=== PATIENT | male | born 1945 | race Caucasian/White ===

== ENCOUNTER 2018-09-02 06:18 | Day surgery (SDC) | payer OTHER ==
[~2018-09-02] VITALS: Ht 190.5 cm; Wt 83.9 kg
[~2018-09-02 06:18] MED LIST: BETA1TAB20 PO; CITA40TA6 PO; SODIUM CHLORIDE 0.9% 1000ML 1,000 ML IV ONE
[2018-09-02 07:56] VITALS: BP 128/73
[2018-09-02 09:00] VITALS: BP 95/45
[2018-09-02 09:05] VITALS: BP 120/69
[2018-09-02 09:10] VITALS: BP 125/73
[2018-09-02 09:15] VITALS: BP 115/68
[2018-09-02 09:20] VITALS: BP 121/67
== END 2018-09-02 09:35 | disposition home or self-care (01) ==
LOC: DAH 06:18 → ENDO 06:18
PROVIDERS: ATTEND Internal Medicine Gastroenterology
DX: R93.3 Abnormal findings on diagnostic imaging of other parts of digestive tract (principal); K57.30 Diverticulosis of large intestine without perforation or abscess without bleeding; I10 Essential (primary) hypertension; I25.10 Atherosclerotic heart disease of native coronary artery without angina pectoris; F41.9 Anxiety disorder, unspecified; F32.9 Major depressive disorder, single episode, unspecified; G47.00 Insomnia, unspecified; Z86.010 Personal history of colon polyps; Z90.49 Acquired absence of other specified parts of digestive tract; Z98.890 Other specified postprocedural states; Z79.899 Other long term (current) drug therapy; Z80.0 Family history of malignant neoplasm of digestive organs
CPT/HCPCS: 45378; 88305; A4606; J7030

== ENCOUNTER → 2023-03-27 | Outpatient (CLI) | payer OTHER ==
[~2023-03-27] MED LIST changes: +CITA-108 PO; -CITA40TA6 PO; +IOHEXOL 350 MG/ML 100ML INFUS..BTL IV ONE; +METOPROLOL TARTRATE 1 MG/ML 5ML VIAL IV ONE; -SODIUM CHLORIDE 0.9% 1000ML 1,000 ML IV ONE
== END | disposition home or self-care (01) ==
LOC: RAH 08:13
PROVIDERS: ATTEND Student in an Organized Health Care Education/Training Program
DX: I25.10 Atherosclerotic heart disease of native coronary artery without angina pectoris (principal); R07.9 Chest pain, unspecified; M47.815 Spondylosis without myelopathy or radiculopathy, thoracolumbar region
CPT/HCPCS: 75574; J3490; Q9967

== ENCOUNTER → 2023-03-29 | Outpatient (CLI) | payer OTHER ==
[~2023-03-29] MED LIST changes: -IOHEXOL 350 MG/ML 100ML INFUS..BTL IV ONE; -METOPROLOL TARTRATE 1 MG/ML 5ML VIAL IV ONE
== END | disposition home or self-care (01) ==
LOC: SHCH 07:34
PROVIDERS: ATTEND Student in an Organized Health Care Education/Training Program
DX: I08.8 Other rheumatic multiple valve diseases (principal); R07.9 Chest pain, unspecified; Z95.2 Presence of prosthetic heart valve
CPT/HCPCS: 93306

== ENCOUNTER 2024-08-30 06:27 | Day surgery (SDC) | payer OTHER ==
[2024-08-26 13:58] LABS: IMMATURE GRANULOCYTE ABSOLUTE 0.01 K/uL (0-1); NUCLEATED RED BLOOD CELLS 0.0 % (0.0-0.19); PLATELET COUNT (AUTO) 171 K/uL (130-400); RED BLOOD CELL COUNT(AUTO) 3.88 MIL/uL (4.50-6.20); RED CELL DISTRIBUTION WIDTH 11.8 % (11.0-15.5); WHITE BLOOD COUNT (AUTO) 4.6 K/uL (4.8-10.8)
[2024-08-26 13:59] VITALS: BP 110/65; PULSE 68; RESP 17; TEMP 98.8
[2024-08-26 14:08] LABS: CREATININE 0.8 mg/dL (0.5-1.3); GLOMERULAR FILTR. RATE CALC 91.0 mL/min (>90); GLUCOSE,RANDOM 96.0 mg/dL (70-105); SODIUM SERUM 141.0 mmol/L (136-145); UREA NITROGEN, BLOOD 17.0 mg/dL (7-18)
[2024-08-26 14:09] LABS: INR 0.98 (0.85-1.15)
[~2024-08-30] VITALS: Ht 182.9 cm; Wt 80.3 kg
[2024-08-30] VITALS (16 sets, daily range): BP systolic 112–133; BP diastolic 62–79; PULSE 48–61; RESP 12–16; TEMP 97.4–97.8
[~2024-08-30 06:27] MED LIST changes: -BETA1TAB20 PO; -CITA-108 PO; +VIT1CAPS5 PO
[2024-08-30] MEDS ORDERED: TRAZ-185 PO (07:11)
[2024-08-30] MEDS: LACTATED RINGERS 1000ML 1,000 ML IV ONE (07:12)
[2024-08-30] MEDS ORDERED: NEOSTIGMINE METHYLSULFATE 1MG/ML IV ONE (07:28)
[2024-08-30] MEDS ORDERED: LIDOCAINE PF 100MG/5ML (2%) SYRINGE 5ML ONE (07:28)
[2024-08-30] MEDS ORDERED: SUCCINYLCHOLINE CHLORIDE 20 MG/ML 10 ML VIAL ONE (07:28)
[2024-08-30] MEDS ORDERED: GLYCOPYRROLATE 0.2 MG/ML 5 ML VIAL ONE (07:28)
[2024-08-30] MEDS ORDERED: MIDAZOLAM HCL 1 MG/ML 2ML VIAL ONE (07:29)
--- NOTE | 2024-08-30 09:42 | OP ---
Operative Note: DATE OF PROCEDURE: 08/30/24 SURGEON: GLADYS CONRAD MD HIGH RISK CASE MANAGER: [] ANESTHESIA: [] General ANESTHESIOLOGIST/INSTRUCTOR PRODUCT INSPECTION: [] PREOPERATIVE DIAGNOSIS: [] Right inguinal hernia POSTOPERATIVE DIAGNOSIS: [] The same SYNOPSIS: [] PROCEDURE: [] Robotic right inguinal hernia repair ESTIMATED BLOOD LOSS: [] Minimal INDICATIONS: [] DESCRIPTION OF PROCEDURE: []With the patient prepped in usual fashion and a Hennessy catheter placed we inserted the Veress needle in the left upper quadrant abdomen insufflated. We have some difficulty placing is Hennessy catheter in the patient. No urine was obtained and I decided to left the catheter in and remove it at the end of the procedure Supraumbilical incision was created and a m illimeter da Sumeet trocar was inserted. Under direct vision I remove the needle and I placed 2 da Sumeet trochars 1 in each the side of the abdomen. Then we placed the patient in Trendelenburg and I docked the robot. I went to the console and observe a right inguinal hernia. This seems to be of the direct type. Using cautery dissection I was able to take some adhesions from the right lower quadrant. Using cautery I scored the peritoneum and I brought him down bluntly. I exposed the Bird's ligament and the indirect area I reduce a large hernia sac preserving the spermatic cords and visualizing the vas deferens and spermatic cords. The hernia was reduced without any problems. After observing the myopectineal line and the Bird's ligament I placed a 3 D MAX MId mid mesh on the right side. This was a medium one. I placed it over the Bird's ligament covering couple centimeters below and the indirect space. The sac with the lipoma was placed over the mesh. I then closed the peritoneum with a 2 oh V-Loc. No anchoring of the mesh was necessary. We did a closure continues and dropped the pressure to 8 cm. After this was done I remove the needle and I remove all the trochars under direct vision. The skin was closed with 4-0 Monocryl and Dermabond. We placed 20 cc GLADYS CONRAD MD Aug 30, 2024 09:42
--- NOTE | 2024-08-30 11:20 | NUR ---
pt having difficulty urinating, called Dr ni, recieved order to continue waiting unitl pt urinates, once able to urinate pt okay to discharge.
--- NOTE | 2024-08-30 12:00 | NUR ---
pt urinated 115mls. states feels better, continuing with discharge orders to home per Dr Zepeda.
== END 2024-08-30 12:00 | disposition home or self-care (01) ==
LOC: DAH 06:27
PROVIDERS: ATTEND Surgery
DX: K40.90 Unilateral inguinal hernia, without obstruction or gangrene, not specified as recurrent (principal); Z98.890 Other specified postprocedural states; Z79.01 Long term (current) use of anticoagulants; Z79.899 Other long term (current) drug therapy
CPT/HCPCS: 80048; 85025; 85610; 85730; 36415; 49650; 64486; A6260; A4663; J7030; A4344; C1758; A4215 ×2; J7120; J3010 ×2; J1100; J0330; J0665; J3490 ×4; J2003; J2250; J2704; J2405; J2710; J2795; J0690 ×2; A4930; C1781; A4213; A4222; A4221; A4216; A4450; S2900; A4223 ×2; A4600

== ENCOUNTER 2024-09-22 11:12 | Inpatient (IN) | payer MEDICARE, OTHER ==
[~2024-09-22] VITALS: Ht 182.9 cm; Wt 77.6 kg
[~2024-09-22 11:12] MED LIST changes: +TRAZ-185 PO
--- NOTE | 2024-09-22 11:49 | ERN ---
ED Note History of Present Illness Stated Complaint: URINARY PROBLEM Chief Complaint: Urinary Retention Time Seen by MD: 11:13 Dictation: PATIENT IS A 78-YEAR-OLD MALE COMING IN FROM THE [facility] WITH COMPLAINTS OF URINARY URGENCY AND FREQUENCY SINCE LAST YEAR. HE STATES HE HAD HERNIA SURGERY ON THE 7TH OF THIS MONTH, HAS HAD BEEN TROUBLING EVEN WORSE WITH THE URINATION AND COMPLETELY EMPTYING HIS BLADDER. HE IS CURRENTLY DISTENDED 3- 4 FINGERBREADTHS ABOVE SYMPHYSIS PUBIS STATES HE IS NOT EMPTY HIS BLADDER IN SEVERAL MONTHS. NO UROLOGIST HISTORY OF BPH WITH RETENTION Allergies: Coded Allergies: No Known Allergies (Unverified Allergy, Unknown, 09/01/18) Home Meds Reported Medications Trazodone HCl (Trazodone HCl) 50 Mg Tablet, 25 MG PO HS, TAB 08/30/24 Vit A/Vit C/Vit E/Zinc/Copper (Preservision Areds Softgel) [phone] Capsule, 1 CAP PO 2X/WEEK for 30 Days, #60 CAP 0 Refills 08/26/24 Past Medical History Past Medical History: No Pertinent History Surgical History: Other Surgical History Other: PROSTATES REMOVED RN Note Reviewed/Agreed w/PFSH: Yes Review of System Dictation CONSTITUTIONAL: NEGATIVE EXCEPT FOR HPI HEAD/FACE: NEGATIVE EXCEPT FOR HPI EENT: NEGATIVE EXCEPT FOR HPI RESPIRATORY: NEGATIVE EXCEPT FOR HPI GASTROINTESTINAL/ABDOMINAL: NEGATIVE EXCEPT FOR HPI GENITOURINARY: NEGATIVE EXCEPT FOR HPI URINARY URGENCY FREQUENCY WITH RETENTION MUSCULOSKELETAL: NEGATIVE EXCEPT FOR HPI INTEGUMENTARY: NEGATIVE EXCEPT FOR HPI NEUROLOGICAL/PSYCH: NEGATIVE EXCEPT FOR HPI HEMATOLOGIC/LYMPHATIC: NEGATIVE EXCEPT FOR HPI ALL SYSTEMS NEGATIVE, EXCEPT NOTED ABOVE. 13 POINT REVIEW OF SYSTEMS ASSESSED AND ALL NEGATIVE EXCEPT FOR ABOVE. Initial Vital Sign VS Vital Signs Date Time Temp Pulse Resp B/P (MAP) Pulse Ox O2 Delivery O2 Flow Rate FiO2 09/22/24 11:13 98.4 62 18 137/67 97 Room Air 09/22/24 11:21 0 21 Physical Exam Dictation VITAL SIGNS REVIEWED GENERAL APPEARANCE: ALERT, ORIENTED X 3, MODERATE ACUTE DISTRESS, WELL DEVELOPED, NOURISHED. HEAD AND FACE: NON-TRAUMATIC. EYES: PERRL, PINK CONJUNCTIVAS, EYELID NO TRAUMA, ANTERIOR CHAMBER WITH ARCUS SENILIS. EARS: PINNAS INTACT AND NO SIGNS OF TRAUMA OR ERYTHEMA EAR CANALS CLEAR AND NO DISCHARGE TM NO ERYTHEMA NOSE: NO DISCHARGE, NO BLEEDING. OROPHARYNX: MOUTH NORMAL, TONGUE PINK, PHARYNX CLEAR,NO ERYTHEMA, TONSILS NO EXUDATES, NO ABSCESSES NOTED, MUCOUS MEMBRANE MOIST NECK: SUPPLE, NON-TENDER, NO THYROMEGALY, NO MASSES, NO JVD, NO BRUITS BREAST:DEFERRED CHEST:NO TENDERNESS, NO CREPITUS, NO PARADOXICAL MOVEMENT, NO RETRACTIONS LUNGS:CLEAR, WELL-VENTILATED, SYMMETRIC, NO RALES, NO WHEEZING, NO RHONCHI, NO STRIDOR, GOOD BREATH SOUNDS BILATERALLY HEART: REGULAR RATE, REGULAR RHYTHM, NO MURMUR, NO GALLOPS VASCULAR: NO PERIPHERAL EDEMA, ABDOMEN: SOFT, POSITIVE BOWEL SOUNDS, NONDISTENDED, NO GUARDING, NONTENDER, NO REBOUND, NO MASSES NO HEPATOMEGALY, NO SPLENOMEGALY, NO BEVERLY'S SIGN, NO HERNIAS. RECTAL: DEFERRED GENITAL: PATIENT DISTENDED 3-4 FINGERBREADTHS ABOVE SYMPHYSIS PUBIS. NEUROLOGICAL: NORMAL SPEECH, MOTOR FUNCTION INTACT, SENSORY FUNCTION INTACT MUSCULOSKELETAL: NECK NONTENDER, FULL RANGE OF MOTION, BACK NONTENDER, FULL RANGE OF MOTION, EXTREMITIES: NONTENDER, FULL RANGE OF MOTION SKIN: COLOR PINK, DRY, NO TURGOR, NO RASH, NO LACERATIONS, NO ABRASIONS, NO CONTUSIONS. LYMPHATIC: DEFERRED Results (Laboratory/Radiology) Laboratory/Radiology Laboratory Tests Test 09/22/24 13:08 09/22/24 13:10 09/22/24 14:06 09/22/24 16:41 White Blood Count 4.1 K/uL (4.8-10.8) L 4.1 K/uL (4.8-10.8) L Red Blood Count 2.55 MIL/uL (4.50-6.20) L 3.53 MIL/uL (4.50-6.20) #L Hemoglobin 12.8 g/dL (14.0-18.0) L 12.2 g/dL (14.0-18.0) L 11.8 g/dL (14.0-18.0) L Hematocrit 27.7 % (42-54) L 35.8 % (42-54) #L 33.0 % (42-54) L Mean Corpuscular Volume 108.6 fL (79-99) H 101.4 fL (79-99) H Mean Corpuscular Hemoglobin 50.2 pg (27.0-33.0) H 34.6 pg (27.0-33.0) H Mean Corpuscular Hemoglobin Concent 46.2 g/dL (32.0-36.0) H 34.1 g/dL (32.0-36.0) Red Cell Distribution Width 13.8 % (11.0-15.5) 11.9 % (11.0-15.5) Platelet Count 151 K/uL (130-400) 143 K/uL (130-400) Mean Platelet Volume 10.6 fL (7.5-10.5) H 9.8 fL (7.5-10.5) Immature Granulocyte % (Auto) 0.0 % (0-1) 0.2 % (0-1) Neutrophils (%) (Auto) 63.0 % (40.0-77.0) 66.9 % (40.0-77.0) Lymphocytes (%) (Auto) 23.5 % (21.0-51.0) 21.3 % (21.0-51.0) Monocytes (%) (Auto) 9.8 % (3.0-13.0) 8.0 % (3.0-13.0) Eosinophils (%) (Auto) 2.2 % (0.0-8.0) 2.4 % (0.0-8.0) Basophils (%) (Auto) 1.5 % (0.0-5.0) 1.2 % (0.0-5.0) Neutrophils # (Auto) 2.6 K/uL (1.8-7.7) 2.8 K/uL (1.8-7.7) Lymphocytes # (Auto) 1.0 K/uL (1.0-4.8) 0.9 K/uL (1.0-4.8) L Monocytes # (Auto) 0.4 K/uL (0.1-1.0) 0.3 K/uL (0.1-1.0) Eosinophils # (Auto) 0.09 K/uL (0.00-0.70) 0.10 K/uL (0.00-0.70) Basophils # (Auto) 0.06 K/uL (0.00-0.20) 0.05 K/uL (0.00-0.20) Absolute Immature Granulocyte (auto 0.00 K/uL (0-1) 0.01 K/uL (0-1) Nucleated Red Blood Cells 0.0 % (0.0-0.19) 0.0 % (0.0-0.19) Red Blood Cell Morphology See comments Prothrombin Time 10.3 SEC (9.6-11.6) Prothromb Time International Ratio 0.97 (0.85-1.15) Activated Partial Thromboplast Time 26.8 SEC (26.3-35.5) Sodium Level 141 mmol/L (136-145) Potassium Level 3.8 mmol/L (3.5-5.1) Chloride Level 103 mmol/L (101-111) Carbon Dioxide Level 30 mmol/L (21-32) Blood Urea Nitrogen 16 mg/dL (7-18) Creatinine 0.7 mg/dL (0.5-1.3) Glomerular Filtration Rate Calc 94 mL/min (>90) Random Glucose 100 mg/dL (70-105) Total Calcium 8.6 mg/dL (8.5-10.1) Urine Color RED (YELLOW) H Urine Appearance TURBID (CLEAR) H Urine pH 7.0 (5.0-8.0) Urine Specific [place] 1.025 (1.001-1.031) Urine Protein >=300 mg/dL (NEGATIVE) H Urine Glucose (UA) NEGATIVE mg/dL (NEGATIVE) Urine Ketones NEGATIVE mg/dL (NEGATIVE) Urine Occult Blood LARGE (NEGATIVE) H Urine Nitrate NEGATIVE (NEGATIVE) Urine Bilirubin NEGATIVE mg/dL (NEGATIVE) Urine Urobilinogen 0.2 mg/dL (0.2-1.0) Urine Leukocyte Esterase NEGATIVE [place]in/uL Urine RBC TNTC /HPF (0-1) H Urine WBC None Seen /HPF (0-1) Urine Squamous Epithelial Cells None Seen /HPF (0-2) Urine Bacteria None Seen /HPF (None Seen) Total Bilirubin 1.0 mg/dL (0.2-1.0) Direct Bilirubin 0.2 mg/dL (0.0-0.3) Aspartate Amino Transf (AST/SGOT) 23 U/L (10-37) Alanine Aminotransferase (ALT/SGPT) 21 U/L (12-78) Alkaline Phosphatase 48 U/L (50-136) L Total Protein 6.6 g/dL (6.0-8.3) Albumin 3.4 g/dL (3.5-5.0) L Test 09/22/24 22:19 09/23/24 04:07 Hemoglobin 11.4 g/dL (14.0-18.0) L 11.2 g/dL (14.0-18.0) L Hematocrit 29.7 % (42-54) L 30.2 % (42-54) L Labs Reviewed?: Yes ED Course ED Course Orders Procedure Category Date Status Time Nurse Driven Shaver YFN 09/22/24 In Process Removal Pro 12:31 Bladder Scan CPOE 09/22/24 Transmitted 12:33 Saline Lock Iv CPOE 09/22/24 Transmitted 12:43 Morphine 4mg Syg PHA 09/22/24 Complete (Morphine 4mg Syg) 13:00 Ondansetron 4mg Inj PHA 09/22/24 Complete (Zofran 4mg Inj) 13:00 Bladder Scan CPOE 09/22/24 Transmitted 12:44 Cbc With Differential LAB 09/22/24 Complete 12:55 Urinalysis Profile LAB 09/22/24 Complete 12:55 Basic Metabolic Panel LAB 09/22/24 Complete 12:55 Pt And Ptt LAB 09/22/24 Complete 12:55 Edm Admit Bridge Order ADM 09/22/24 Transmitted 13:04 Urology Consult CONPHYSVC 09/22/24 Transmitted 13:04 Apply Scds CPOE 09/22/24 Transmitted 13:04 Tamsulosin Hcl PHA 09/22/24 Complete (Flomax) 13:30 Tamsulosin Hcl PHA 09/23/24 In Process (Flomax) 09:00 Acetaminophen 325 Tab PHA 09/22/24 In Process (Tylenol 325mg Tab 13:30 Ondansetron 4mg Inj PHA 09/22/24 In Process (Zofran 4mg Inj) 13:30 Hydralazine 20mg Inj PHA 09/22/24 In Process (Apresoline 20mg In 13:30 Lactulose 20 Gm/30 Ml PHA 09/22/24 In Process Udcup (Constulose 13:30 Magnesium 2gm Premix PHA 09/22/24 In Process 50ml (Magnesium 2gm 13:30 Initiate Npo YFN 09/22/24 In Process Hypokalemia Yong 13:04 Potassium Chloride PHA 09/22/24 In Process 20meq/100ml ([place] 13:30 Notify Physician If CPOE 09/22/24 Transmitted There Is 13:04 Notify Md On The Next CPOE 09/22/24 Transmitted 13:04 Notify Md On The CPOE 09/22/24 Transmitted Next(Cont.) 13:04 Initiate Po YNF 09/22/24 In Process Hypokalemia Protoc 13:04 Potassium Chloride PHA 09/22/24 Complete 20meq/100ml ([place] 13:30 Potassium Chl 10% PHA 09/22/24 In Process Elixir 20meq (Kcl 10% 13:30 Potassium Chloride PHA 09/22/24 In Process 20meq Er (K-Dur/Klor- 13:30 Notify Physician If CPOE 09/22/24 Transmitted There Is 13:04 Notify Md On The Next CPOE 09/22/24 Transmitted 13:04 Notify Md On The CPOE 09/22/24 Transmitted Next(Cont.) 13:04 Trazodone Hcl PHA 09/22/24 In Process (Desyrel/Oleptro) 21:00 Home Medication (Home PHA 09/22/24 In Process Medication) 14:00 Admit Orders ADM 09/22/24 Transmitted 13:51 Morphine 2mg Syg PHA 09/22/24 In Process (Morphine 2mg Syg) 14:00 Cbc With Differential LAB 09/22/24 Complete 13:51 Hemoglobin And LAB 09/22/24 Complete Hematocrit 16:00 Hemoglobin And LAB 09/22/24 Complete Hematocrit 22:00 Hemoglobin And LAB 09/23/24 Complete Hematocrit 04:00 Hemoglobin And LAB 09/23/24 Logged Hematocrit 10:00 Hemoglobin And LAB 09/23/24 Logged Hematocrit 16:00 Hemoglobin And LAB 09/23/24 Logged Hematocrit 22:00 Etoh Alcohol YFN 09/22/24 In Process Withdrawal Ords 14:07 Chlordiazepoxide Hcl PHA 09/22/24 In Process 25 Mg Cap (Librium 14:30 Pharmacy PHA 09/22/24 In Process Communication 14:30 Use The Ci[place]-Ar CPOE 09/22/24 Transmitted Assmt. Tool 14:07 Assess The Need For CPOE 09/22/24 Transmitted Seizure & 14:07 Vs Per Unit Routine & CPOE 09/22/24 Transmitted With 14:07 Document Etoh CPOE 09/22/24 Transmitted Withdrawal Score 14:07 Urinalysis Profile LAB 09/22/24 Logged 14:10 Diazepam 5 Mg/Ml 2 Ml PHA 09/22/24 In Process Syg (Valium 5 Mg/M 14:30 Gastroenterology CONPHYSVC 09/22/24 Transmitted Consult 14:11 Type And Screen BBK 09/23/24 Complete 04:00 *Nursing CPOE 09/22/24 Transmitted Communication: 14:15 Ct Abdomen/Pelvis W/O CT 09/22/24 Resulted Contrast 16:26 Nothing By Mouth DIET 09/22/24 Complete Dinner Ceftriaxone 1g Vial PHA 09/22/24 In Process (Rocephine 1g Inj) 18:00 Hepatic Function Panel LAB 09/22/24 Complete 17:46 Hydrocortisone 1% PHA 09/22/24 In Process Cream (Cortrisone 1% C 22:30 Schedule Or Consented CPOE 09/23/24 Transmitted Surgery 06:30 Nothing By Mouth DIET 09/23/24 Transmitted Breakfast Npo Midnight Before CPOE 09/22/24 Transmitted Procedure 22:17 Midazolam Hcl (Versed) PHA 09/23/24 Complete 06:13 Propofol 20ml Vial PHA 09/23/24 Complete (Diprivan 20ml Vial) 06:13 Fentanyl Citrate Pf PHA 09/23/24 Complete 0.05 Mg/Ml (Fentanyl 06:13 Ceftriaxone 1g Vial PHA 09/23/24 Complete (Rocephine 1g Inj) 06:20 Rocuronium [place] PHA 09/23/24 Complete (Zemuron) 06:24 Urethrocystography RAD 09/23/24 Logged Retrograde Cbc With Differential LAB 09/23/24 In Process 06:52 Comprehensive LAB 09/23/24 In Process Metabolic Panel 06:52 Magnesium LAB 09/23/24 In Process 06:52 Current Medications Medications (Trade) Dose Ordered Sig/Amber Route PRN Reason Start Time Stop Time Status Last Admin Dose Admin Morphine Sulfate (morPHINE 4MG SYG) 4 mg ONCE ONCE IVP 09/22/24 13:00 09/22/24 13:01 DC 09/22/24 13:16 Ondansetron HCl (zoFRAN 4MG INJ) 4 mg ONCE ONCE IVP 09/22/24 13:00 09/22/24 13:01 DC 09/22/24 13:16 Vital Signs Date Time Temp Pulse Resp B/P (MAP) Pulse Ox O2 Delivery O2 Flow Rate FiO2 09/23/24 04:00 98.6 61 20 108/69 97 Room Air 09/23/24 00:00 98.2 60 18 126/73 97 Room Air 09/22/24 20:00 98.4 84 20 132/79 98 Room Air 09/22/24 17:50 97 Room Air* 0 21 09/22/24 17:50 98.1 71 18 135/84 97 Room Air 21 09/22/24 17:30 98.1 75 14 137/84 99 Room Air 09/22/24 11:21 98.4 62 18 137/67 97 Room Air* 0 21 09/22/24 11:13 98.4 62 18 137/67 97 Room Air 1258/SPOKE WITH , WE WILL DRAW BASIC LABS TO INCLUDE COAG PANEL, WE WILL GIVE PATIENT MEDICATION FOR PAIN AND WE WILL HAVE PATIENT ADMITTED FOR CONSULTATION TO UROLOGY.1305/ 1305 SPOKE WITH THE [facility] RN FOR [facility]. REVIEWED ATTEMPTS TO OBTAIN CATHETERIZATION WITHOUT SUCCESS SHE IS AWARE I AM DRAWING LABS WE WILL GIVE PATIENT IS SEPTIC FOR PAIN AND SHE NEEDS TO CONSULT UROLOGY. Medical Decision Making MDM MDM: DIFFERENTIAL DIAGNOSIS: URINARY RETENTION/PROSTATE ENLARGEMENT/URINARY TRACT INFECTION/ELECTROLYTE IMBALANCE/DEHYDRATION RATIONALE: TESTS CONSIDERED AND ORDERED SECONDARY TO SHARED DECISION MAKING INCLUDE: LABS, PREVIOUS OUTSIDE RECORDS REVIEWED: OLD ER VISITS. RISK OF COMPLICATION AND/OR MORBIDITY OR MORTALITY OF PATIENT MANAGEMENT: NONE MEDICATIONS-PER MEDICATION RECONCILIATION NEED FOR HOSPITALIZATION: PATIENT DOES MEET CRITERIA FOR HOSPITALIZATION. UROLOGY CONSULTATION NEED FOR EMERGENCY MAJOR/MINOR SURGERY: NO THERE ARE NO SOCIAL CONCERNS WITH THIS PATIENT. PRESCRIPTION DRUG MANAGEMENT PRESCRIPTIONS WILL INCLUDE SYMPTOMATIC CARE PATIENT'S PRIOR EXTERNAL MEDICAL RECORDS FROM OTHER ER VISITS WERE REVIEWED BY ME INDICATED. PRIOR TESTING AND RESULTS FROM PREVIOUS VISITS WERE REVIEWED. PRIOR TESTS WERE TAKEN INTO ACCOUNT WITH MEDICAL DECISION MAKING AND RESOURCE UTILIZATION, INDEPENDENT HISTORIAN/HISTORIANS WERE USED TO OBTAIN COMPLETE MEDICAL HISTORY. I INDEPENDENTLY INTERPRETED THE TEST THAT WERE PERFORMED, RESULTS WERE REVIEWED BY ME AND CONSIDERED FINDINGS ON RADIOLOGY IF ORDERED. MEDICAL MANAGEMENT AND EXAMINATION INTERPRETATION DISCUSSIONS WERE HAD BY ME WITH OTHER QUALIFIED HEALTHCARE PROFESSIONALS INDICATED FOR THE PATIENT'S CARE. Procedure Procedure Dictation: 1140/ATTEMPTED MULTIPLE X2 ASEPTICALLY PLACED A 16 GREEK STRAIGHT SHAVER CATHETERIZATION THEN 14 GREEK COUDE WITHOUT SUCCESS. WE WILL REFER PATIENT TO ANOTHER NURSE FOR RE-ATTEMPT. DX & DISP Disposition: Inpatient Decision to Admit Time: 12:58 Departure Impression: Primary Impression: Acute on chronic urinary retention Additional Impression: Urinary frequency Condition: Stable Referrals: ELOISA ORNELAS MD (PCP) Time of Disposition: 12:58 I have reviewed the case, and I agree with, Diagnosis and Plan NAYA PHILLIP NP Sep 22, 2024 11:49 MINDA OVIEDO DO Sep 23, 2024 07:01
--- NOTE | 2024-09-22 12:38 | NUR ---
BLADDER SCAN SHOWS 404 ML
--- NOTE | 2024-09-22 13:10 | HP ---
[facility] HISTORY AND PHYSICAL Date of Service: Sep 22, 2024 Time of Service: 13:09 HISTORY OF PRESENT ILLNESS: [ ] ADMISSION DATE 09/22/[address] [facility] [address] [address] ORNELAS This is a 78-year-old male that presents in ER with chief complaints of urinary urgency: onset: Reports this has been ongoing. Patient has underlying prostate cancer history 2002. Patient reports having hematuria which is ongoing per se. Patient denies flank pain, suprapubic pain,dizziness, or shortness for breath. ER workup bladder scan urine retention greater than 400 mL, multiple attempts insertion of Shaver catheter unsuccessful. ER physician called Dr. Brittany BOND. The patient was seen in ED 9 appears be comfortable. Denied chest pain or shortness for breath. REVIEW OF SYSTEMS A 12 point ROS was obtained all relevant positives were documented otherwise ROS negative PAST MEDICAL HISTORY: [ ] Hypertension no BP medication, hyperlipidemia PAST SURGICAL HISTORY: [ ] Heart surgery, prostate surgery PAST SOCIAL HISTORY: [ ] Denies smoking tobacco products drinks alcohol on a daily basis three cans of beer FAMILY HISTORY: [ ] . Noncontributory Coded Allergies: No Known Allergies (Unverified Allergy, Unknown, 09/01/18) PHYSICAL EXAM GENERAL APPEARANCE: The patient is awake, alert, and oriented, in no acute cardiopulmonary distress. NEUROLOGICAL: Cranial nerves II-XII grossly intact. Motor is 5/5 in bilateral upper and lower extremities proximal to distal. No sensory deficits. HEENT: Face is symmetric. Pupils are equal and reactive. Extraocular movements are intact. NECK: Supple. No JVD. No thyromegaly. No submental, submandibular, pre- /postauricular, occipital or supraclavicular lymphadenopathy. CHEST: Normal chest expansion. No Telemetry. LUNGS: Absence of any rales, rhonchi or any wheezing. CARDIOVASCULAR: Regular. S1 and S2 normal. No appreciable rubs, murmurs or gallops. ABDOMEN: Soft, nontender, and nondistended. There is no rebound, voluntary guarding, or rigidity. : Deferred. No Shaver. EXTREMITIES: Non-edematous and not cyanotic. No clubbing. Good capillary refill. SKIN: No skin breakdown. Vital Sign (Last 24 Hours) 09/22/24 11:21 Temp 98.4 Pulse 62 Resp 18 B/P (MAP) 137/67 Pulse Ox 97 O2 Delivery Room Air* O2 Flow Rate 0 FiO2 21 LABS: DIAGNOSTICS / RADIOLOGY: ASSESSMENT: Gross hematuria POA Urinary urgency, retention POA Rectal bleed secondary to external hemorrhoids POA ETOH DEPENDENCY: HISTORY:RECTAL PROLAPSE HISTORY OF PROSTATE CANCER 2002 PLAN: [ ] Admit: Medical-surgical floor condition: Guarded Status: Full code IVF: Hep-Lock Diet: NPO for now if no surgical intervention Heart Healthy diet Consultants urology and GI Procedure; MULTIPLE ATTEMPTS INSERTION SHAVER CATHETER unsuccessful: WAITING FOR UROLOGY Antibiotics: None Microbiology: UA pending We will monitor H&H trend H&H every 6 hours Type and screen ; transfuse to keep hemoglobin above 7.0 Labs cbc, cmp, mag+ Replace electrolytes as needed as per protocol to keep potassium above 4.0 magnesium 2.0. Home medications pending to be reviewed by RN nurse. PRN: MEDICATIONS Tylenol 650 mg po every 4 hrs for fever zofran 4 mg IV every 6 hrs for n/v Hydralazine 5 mg IV every 4 hrs systolic pressure > 160 bowel regiment: lactulose 20 gm PO BID PRN constipation Pain management: MORPHINE2 MG IV NEEDED FOR PAIN Supportive measures: DVT ppx, GI ppx all questions answered time spent: > 35 min Supervising MD: Dr. VANN c/d This document was generated in part using voice recognition software, occasional wrong word or sound alike substitutions may have occurred due to the inherent limitations of voice recognition software. Read the chart carefully and recognize using context, where the substitutions have occurred. Although every effort was made to edit the content, minister helper and typing errors may occur ADVANCED CARE PLANNING 1. Which of the following were discussed? Hospice Care - Yes / No Therapeutic options - Yes / No Advance Directives - Yes / No Other discussions - 2. Discussed with who? 3. Voluntary nature of this service was explained to the patient? Yes / No 4. Amount of time spent - 5. Reviewed by Physician? (if this service was performed by NPP) Yes / No ATTESTATION BY PHYSICIAN I have seen and examined the patient. I reviewed the documentation, medical decision making, and treatment plan as noted by the mid-level provider above. I agree with the findings and plan of care. YUE VANN MD, ELIZABETH NP Sep 22, 2024 13:09
[2024-09-22] MEDS ORDERED: LACTULOSE 20 GM/30 ML UDCUP PO PRN (13:30)
[2024-09-22] MEDS ORDERED: PoTASSium chl 10% ELIXIR 20MEQ 20 MEQ/15 ML UDCUP PO PRN (13:30)
[2024-09-22] MEDS ORDERED: PoTASSium chloRIDE 20MEQ ER 20 MEQ ERTAB PO PRN (13:30)
[2024-09-22] MEDS ORDERED: MAGNESIUM 2GM PREMIX 50ML 50 ML IV PRN (13:30)
[2024-09-22 13:36] LABS: IMMATURE GRANULOCYTE ABSOLUTE 0.00 K/uL (0-1); NUCLEATED RED BLOOD CELLS 0.0 % (0.0-0.19); PLATELET COUNT (AUTO) 151 K/uL (130-400); RED BLOOD CELL COUNT(AUTO) 2.55 MIL/uL (4.50-6.20); RED CELL DISTRIBUTION WIDTH 13.8 % (11.0-15.5); WHITE BLOOD COUNT (AUTO) 4.1 K/uL (4.8-10.8)
[2024-09-22 13:39] LABS: CREATININE 0.7 mg/dL (0.5-1.3); GLOMERULAR FILTR. RATE CALC 94.0 mL/min (>90); GLUCOSE,RANDOM 100.0 mg/dL (70-105); SODIUM SERUM 141.0 mmol/L (136-145); UREA NITROGEN, BLOOD 16.0 mg/dL (7-18)
[2024-09-22 13:46] LABS: INR 0.97 (0.85-1.15)
[2024-09-22 13:55] LABS: GLUCOSE, URINE (UA) NEGATIVE (NEGATIVE); LEUKOCYTE ESTERASE ,URINE NEGATIVE Leu/uL (NEGATIVE); NITRATE,URINE NEGATIVE (NEGATIVE); OCCULT BLOOD,URINE LARGE (NEGATIVE)
[2024-09-22] MEDS ORDERED: (Vit A/Vit C/Vit E/Zinc/Copper (Preservision Areds Softgel PO SCH (14:00)
--- NOTE | 2024-09-22 14:00 | NUR ---
SAHVER ATTEMPT W/ 16F, 14F, 12F AND AND 18F, NO SUCCESS
[2024-09-22 14:03] LABS: ADD UA MICROSCOPIC YES; APPEARANCE,URINE TURBID (CLEAR)
[2024-09-22 14:05] LABS: SQUAMOUS EPITHELIAL CELL,UR None Seen /HPF (0-2)
[2024-09-22 14:09] LABS: IMMATURE GRANULOCYTE ABSOLUTE 0.01 K/uL (0-1); NUCLEATED RED BLOOD CELLS 0.0 % (0.0-0.19); PLATELET COUNT (AUTO) 143 K/uL (130-400); RED BLOOD CELL COUNT(AUTO) 3.53 MIL/uL (4.50-6.20); RED CELL DISTRIBUTION WIDTH 11.9 % (11.0-15.5); WHITE BLOOD COUNT (AUTO) 4.1 K/uL (4.8-10.8)
--- NOTE | 2024-09-22 14:20 | NUR ---
DCP: HOME Pt currently lives alone in his home. pt does not have any DME, home health, or provider services. Pt is able to complete ADLs independently. PCP is Dr. Rodolfo Zavala and uses the [place] for any RX needs. At [place] pt will want to go home and family/friends can assist with transportation. Addendum: 09/22/24 at 1423 by LILLY SCHMIDT SS Amended: Links added.
[2024-09-22] MEDS ORDERED: PHARMACY COMMUNICATION MISC PRN (14:30)
[2024-09-22 17:30] VITALS: BP 137/84; PULSE 75; RESP 14; TEMP 98.1
[2024-09-22 17:50] VITALS: BP 135/84; PULSE 71; RESP 18; TEMP 98; O2SAT 97
--- NOTE | 2024-09-22 17:59 | CONS ---
GASTROENTEROLOGY CONSULTATION NOTE Date of Consultation: Sep 22, 2024 Time of Consultation: 17:57 History of Present Illness: [ 78 yo male patient who presented to ER with c/o urinary urgency, and hematuria. Patient was found to have urinary retention with greater than 400 ml of urine in bladder. Patient had multiple unsuccessful attempts to insert spears catheter. We were consulted for bleeding external hemorrhoids. One exam patient was awake and alert. He denied having any pain, denied having any hemorrhoids or bleeding from them. Patient declined all examination and declined any EGD/colonoscopy exams. ] Review of Systems: CONSTITUTIONAL: No malaise or change in sensation of wellbeing. ENMT: No rhinorrhea, otorrhea, sinus pain, ear ache. CARDIOVASCULAR: No angina, palpitations, orthopnea or paroxysmal dyspnea. RESPIRATORY: No SOB. GASTROINTESTINAL: No abdominal pain, nausea, vomiting, diarrhea, hematemesis, melena or change in the patient's habitual bowel movements consistency/number. GENITOURINARY: No dysuria, hematuria or change in bladder continence. MUSCULOSKELETAL: No new muscle pain or decrease in muscular strength. No new joint swelling, redness or tenderness. SKIN: No new rash. Past Medical History: (information obtained from medical record) [ ] Hypertension no BP medication, hyperlipidemia PAST SURGICAL HISTORY: [ ] Heart surgery, prostate surgery PAST SOCIAL HISTORY: [ ] Denies smoking tobacco products drinks alcohol on a daily basis three cans of beer Coded Allergies: No Known Allergies (Unverified Allergy, Unknown, 09/01/18) Physical Exam: GEN: Awake, alert, oriented in person, time and place, and in no acute distress. HEENT: No rhinorrhea. Oral pharyngeal mucosa is moist and within normal limits. CHEST:Respriations unlabored CARDIAC: declined exam ABD: declined exam EXT: No cyanosis or clubbing. No edema. SKIN: Intact. No rashes. JOINTS: No evidence of synovitis or acute arthritis. NEURO: Alert and oriented to name, place and person. Normal speech per patient. Strength is normal. Vital Sign (Last 24 Hours) 09/22/24 11:21 Temp 98.4 Pulse 62 Resp 18 B/P (MAP) 137/67 Pulse Ox 97 O2 Delivery Room Air* O2 Flow Rate 0 FiO2 21 Laboratory: [ ] Laboratory: Test 09/22/24 16:41 09/22/24 14:06 09/22/24 13:10 09/22/24 13:08 Range/Units Hemoglobin 11.8 L 14.0-18.0 g/dL Hematocrit 33.0 L 42-54 % White Blood Count 4.1 L 4.8-10.8 K/uL Red Blood Count 3.53 #L 4.50-6.20 MIL/uL Mean Corpuscular Volume 101.4 H 79-99 fL Mean Corpuscular Hemoglobin 34.6 H 27.0-33.0 pg Mean Corpuscular Hemoglobin Concent 34.1 32.0-36.0 g/dL Red Cell Distribution Width 11.9 11.0-15.5 % Platelet Count 143 130-400 K/uL Mean Platelet Volume 9.8 7.5-10.5 fL Immature Granulocyte % (Auto) 0.2 0-1 % Neutrophils (%) (Auto) 66.9 40.0-77.0 % Lymphocytes (%) (Auto) 21.3 21.0-51.0 % Monocytes (%) (Auto) 8.0 3.0-13.0 % Eosinophils (%) (Auto) 2.4 0.0-8.0 % Basophils (%) (Auto) 1.2 0.0-5.0 % Neutrophils # (Auto) 2.8 1.8-7.7 K/uL Lymphocytes # (Auto) 0.9 L 1.0-4.8 K/uL Monocytes # (Auto) 0.3 0.1-1.0 K/uL Eosinophils # (Auto) 0.10 0.00-0.70 K/uL Basophils # (Auto) 0.05 0.00-0.20 K/uL Absolute Immature Granulocyte (auto 0.01 0-1 K/uL Nucleated Red Blood Cells 0.0 0.0-0.19 % Urine Color RED H YELLOW Urine Appearance TURBID H CLEAR Urine pH 7.0 5.0-8.0 Urine Specific [place] 1.025 1.001-1.031 Urine Protein >=300 H NEGATIVE mg/dL Urine Glucose (UA) NEGATIVE NEGATIVE mg/dL Urine Ketones NEGATIVE NEGATIVE mg/dL Urine Occult Blood LARGE H NEGATIVE Urine Nitrate NEGATIVE NEGATIVE Urine Bilirubin NEGATIVE NEGATIVE mg/dL Urine Urobilinogen 0.2 0.2-1.0 mg/dL Urine Leukocyte Esterase NEGATIVE NEGATIVE Florin/uL Urine RBC TNTC H 0-1 /HPF Urine WBC None Seen 0-1 /HPF Urine Squamous Epithelial Cells None Seen 0-2 /HPF Urine Bacteria None Seen None Seen /HPF Red Blood Cell Morphology See comments Prothrombin Time 10.3 9.6-11.6 SEC Prothromb Time International Ratio 0.97 0.85-1.15 Activated Partial Thromboplast Time 26.8 26.3-35.5 SEC Sodium Level 141 136-145 mmol/L Potassium Level 3.8 3.5-5.1 mmol/L Chloride Level 103 101-111 mmol/L Carbon Dioxide Level 30 21-32 mmol/L Blood Urea Nitrogen 16 7-18 mg/dL Creatinine 0.7 0.5-1.3 mg/dL Glomerular Filtration Rate Calc 94 >90 mL/min Random Glucose 100 70-105 mg/dL Total Calcium 8.6 8.5-10.1 mg/dL Current Medications Medications (Trade) Dose Ordered Sig/Amber Route PRN Reason Start Time Stop Time Status Last Admin Dose Admin Acetaminophen (TYLenol 325MG TAB) 650 mg Q4H PRN PO TEMPERATURE GREATER THAN 101.5 09/22/24 13:30 10/22/24 13:29 Ceftriaxone Sodium (ROCEphine 1G INJ) 1 gm ONCE PRN IVPB PRE-MED 09/22/24 18:00 09/24/24 17:59 Chlordiazepoxide HCl (LIBrium 25 MG CAP) 25 mg Q2H PRN PO ALCOHOL WITHDRAWAL PROTOCOL 09/22/24 14:30 09/29/24 14:29 Diazepam (VALium 5 MG/ML 2 ML SYG) 10 mg Q4H PRN IVP ALCOHOL WITHDRAWAL PROTOCOL 09/22/24 14:30 09/29/24 14:29 Home Med (Home Medication) (Vit A/Vit C/ Vit E/Zinc/ Project Management It Specialist... 2X/WEEK PO 09/22/24 14:00 10/22/24 13:59 Hydralazine HCl (APRESOLine 20MG INJ) 5 mg Q4H PRN IV ADMINISTER FOR SBP > 160 09/22/24 13:30 10/22/24 13:29 Lactulose (Constulose 20gm/ 30ml Udcup) 20 gm BID PRN PO CONSTIPATION 09/22/24 13:30 10/22/24 13:29 Magnesium Sulfate 50 ml @ 0 mls/hr PROTOCOL PRN IV low mag level 09/22/24 13:30 10/22/24 13:29 Morphine Sulfate (morPHINE 2MG SYG) 2 mg Q4H PRN IVP SEVERE PAIN (7-10) 09/22/24 14:00 09/29/24 13:59 Ondansetron HCl (zoFRAN 4MG INJ) 4 mg Q6H PRN IVP NAUSEA/VOMITING 09/22/24 13:30 10/22/24 13:29 Pharmacy Profile Note (Pharmacy Communication) 1 each PROTOCOL PRN MISC ETOH Withdrawal Score changes 09/22/24 14:30 09/29/24 14:29 Potassium Chloride 100 ml @ 50 mls/hr AD PRN IV POTASSIUM PROTOCOL 09/22/24 13:30 10/22/24 13:29 Potassium Chloride 100 ml @ 100 mls/hr AD PRN IV POTASSIUM PROTOCOL 09/22/24 13:30 09/22/24 13:52 DC Potassium Chloride (K-Dur/Klor-Con 20meq) 20 meq AD PRN PO POTASSIUM PROTOCOL 09/22/24 13:30 10/22/24 13:29 Potassium Chloride (KCl 10% Elixir 20meq/15ml) 20 meq AD PRN PO POTASSIUM PROTOCOL 09/22/24 13:30 10/22/24 13:29 Tamsulosin HCl (FloMAX) 0.4 mg DAILY PO 09/23/24 09:00 10/23/24 08:59 Trazodone HCl (DesyREL/OlepTRO) 25 mg HS PO 09/22/24 21:00 10/22/24 20:59 Diagnostics / Radiology: [COPY/PASTE HERE IF NO REPORTS PLEASE DELETE SECTION] Assessment: [Concern for Gi bleed Exernal Hemorrhoids Urinary Retention s/p hernia repair ] Plan: [Trend HGB and transfuse as needed to maintain HGB>7 Clear liquid diet Will hold on any GI intervention at this time given patient's HGB of 11.8 and urinary status pending Urology evaluation Plan for possible EGD if HGB continues to trend down GI Prophylaxis Please call with questions, concern and change in clinical status. Thank you for this consult. ] HANK SIERRA NP Sep 22, 2024 17:59
--- NOTE | 2024-09-22 18:18 | HMCIMG ---
EXAM: CT Abdomen and Pelvis without IV contrast CLINICAL HISTORY: GROSS HEMATURIA, URINARY URGENCY, RETENTION TECHNIQUE: Axial computed tomography images of the abdomen and pelvis without intravenous contrast. CT scan performed according to ALARA. Automated exposure control used during exam. CONTRAST: without intravenous contrast. COMPARISON: None provided. FINDINGS: There is linear atelectasis and/or parenchymal scarring at the lung bases. Atherosclerosis of the coronary arteries and thoracic aorta. Presumed prior mitral valve repair. Limited evaluation of the abdominal organs without intravenous contrast. There is no focal abnormality appreciated within the liver, gallbladder, either adrenal gland, either kidney, spleen, or pancreas. Incidental partially calcified splenic capsule. Colonic diverticulosis without evidence for diverticulitis. Bowel loops are normal in caliber without evidence of obstruction or ileus. There is no obvious bowel wall thickening appreciated. The appendix was not visualized. No CT evidence of appendicitis. Prostatic radiation seeds are noted. There is no intravesical abnormality appreciated. The bladder wall appears normal in thickness. Atherosclerotic vascular calcifications are noted. There is no ascites or lymphadenopathy. There is no acute or suspicious osseous abnormality. IMPRESSION: 1. No acute intraabdominal or pelvic pathology. 2. Status post prostatic brachytherapy. /[place]
[2024-09-22 19:02] LABS: ASPARTATE AMINOTRANSFERASE 23.0 U/L (10-37); TOTAL PROTEIN, SERUM 6.6 g/dL (6.0-8.3)
[2024-09-22 20:00] VITALS: BP 132/79; PULSE 84; RESP 20; TEMP 98.4; O2SAT 98
[2024-09-23] VITALS (32 sets, daily range): BP systolic 93–180; BP diastolic 37–91; PULSE 49–76; RESP 15–20; TEMP 97.1–99.8; O2SAT 95–99
[2024-09-23] MEDS ORDERED: MIDAZOLAM HCL 1 MG/ML 2ML VIAL ONE (06:13)
[2024-09-23] MEDS: cefTRIAXone 1G VIAL 1 GM ONE (06:20)
--- NOTE | 2024-09-23 06:53 | PN ---
[facility] PROGRESS NOTE Date of Service: Sep 23, 2024 Time of Service: 06:50 SUBJECTIVE: [ ] ADMISSION DATE 09/22/[address] [facility] ORNELAS This is a 78-year-old male that presents in ER with chief complaints of urinary urgency: onset: Reports this has been ongoing. Patient has underlying prostate cancer history 2002. Patient reports having hematuria which is ongoing per se. Patient denies flank pain, suprapubic pain,dizziness, or shortness for breath. ER workup bladder scan urine retention greater than 400 mL, multiple attempts insertion of Hennessy catheter unsuccessful. ER physician called Dr. Brittany BOND. 09/23/24 the patient was seen by Dr Soto scheduled today for a Cystogram patient was started on CBI irrigation yesterday with three weight Hennessy. H&H stable GI consulted Patient declined all examination and declined any EGD/colonoscopy exams. REVIEW OF SYSTEMS A 12 point ROS was obtained all relevant positives were documented otherwise ROS negative PHYSICAL EXAM GENERAL APPEARANCE: The patient is awake, alert, and oriented, in no acute cardiopulmonary distress. NEUROLOGICAL: Cranial nerves II-XII grossly intact. Motor is 5/5 in bilateral upper and lower extremities proximal to distal. No sensory deficits. HEENT: Face is symmetric. Pupils are equal and reactive. Extraocular movements are intact. NECK: Supple. No JVD. No thyromegaly. No submental, submandibular, pre- /postauricular, occipital or supraclavicular lymphadenopathy. CHEST: Normal chest expansion. No Telemetry. LUNGS: Absence of any rales, rhonchi or any wheezing. CARDIOVASCULAR: Regular. S1 and S2 normal. No appreciable rubs, murmurs or gallops. ABDOMEN: Soft, nontender, and nondistended. There is no rebound, voluntary guarding, or rigidity. : Deferred. No Hennessy. EXTREMITIES: Non-edematous and not cyanotic. No clubbing. Good capillary refill. SKIN: No skin breakdown. Vital Signs (last 8hr) Date Time Temp Pulse Resp B/P (MAP) Pulse Ox O2 Delivery O2 Flow Rate FiO2 09/23/24 04:00 98.6 61 20 108/69 97 Room Air 09/23/24 00:00 98.2 60 18 126/73 97 Room Air LABS: Laboratory: Test 09/23/24 04:07 09/22/24 14:06 09/22/24 13:10 09/22/24 13:08 Range/Units Hemoglobin 11.2 L 14.0-18.0 g/dL Hematocrit 30.2 L 42-54 % White Blood Count 4.1 L 4.8-10.8 K/uL Red Blood Count 3.53 #L 4.50-6.20 MIL/uL Mean Corpuscular Volume 101.4 H 79-99 fL Mean Corpuscular Hemoglobin 34.6 H 27.0-33.0 pg Mean Corpuscular Hemoglobin Concent 34.1 32.0-36.0 g/dL Red Cell Distribution Width 11.9 11.0-15.5 % Platelet Count 143 130-400 K/uL Mean Platelet Volume 9.8 7.5-10.5 fL Immature Granulocyte % (Auto) 0.2 0-1 % Neutrophils (%) (Auto) 66.9 40.0-77.0 % Lymphocytes (%) (Auto) 21.3 21.0-51.0 % Monocytes (%) (Auto) 8.0 3.0-13.0 % Eosinophils (%) (Auto) 2.4 0.0-8.0 % Basophils (%) (Auto) 1.2 0.0-5.0 % Neutrophils # (Auto) 2.8 1.8-7.7 K/uL Lymphocytes # (Auto) 0.9 L 1.0-4.8 K/uL Monocytes # (Auto) 0.3 0.1-1.0 K/uL Eosinophils # (Auto) 0.10 0.00-0.70 K/uL Basophils # (Auto) 0.05 0.00-0.20 K/uL Absolute Immature Granulocyte (auto 0.01 0-1 K/uL Nucleated Red Blood Cells 0.0 0.0-0.19 % Total Bilirubin 1.0 0.2-1.0 mg/dL Direct Bilirubin 0.2 0.0-0.3 mg/dL Aspartate Amino Transf (AST/SGOT) 23 10-37 U/L Alanine Aminotransferase (ALT/SGPT) 21 12-78 U/L Alkaline Phosphatase 48 L 50-136 U/L Total Protein 6.6 6.0-8.3 g/dL Albumin 3.4 L 3.5-5.0 g/dL Urine Color RED H YELLOW Urine Appearance TURBID H CLEAR Urine pH 7.0 5.0-8.0 Urine Specific [place] 1.025 1.001-1.031 Urine Protein >=300 H NEGATIVE mg/dL Urine Glucose (UA) NEGATIVE NEGATIVE mg/dL Urine Ketones NEGATIVE NEGATIVE mg/dL Urine Occult Blood LARGE H NEGATIVE Urine Nitrate NEGATIVE NEGATIVE Urine Bilirubin NEGATIVE NEGATIVE mg/dL Urine Urobilinogen 0.2 0.2-1.0 mg/dL Urine Leukocyte Esterase NEGATIVE NEGATIVE [place]in/uL Urine RBC TNTC H 0-1 /HPF Urine WBC None Seen 0-1 /HPF Urine Squamous Epithelial Cells None Seen 0-2 /HPF Urine Bacteria None Seen None Seen /HPF Red Blood Cell Morphology See comments Prothrombin Time 10.3 9.6-11.6 SEC Prothromb Time International Ratio 0.97 0.85-1.15 Activated Partial Thromboplast Time 26.8 26.3-35.5 SEC Sodium Level 141 136-145 mmol/L Potassium Level 3.8 3.5-5.1 mmol/L Chloride Level 103 101-111 mmol/L Carbon Dioxide Level 30 21-32 mmol/L Blood Urea Nitrogen 16 7-18 mg/dL Creatinine 0.7 0.5-1.3 mg/dL Glomerular Filtration Rate Calc 94 >90 mL/min Random Glucose 100 70-105 mg/dL Total Calcium 8.6 8.5-10.1 mg/dL Current Medications Medications (Trade) Dose Ordered Sig/Amber Route PRN Reason Start Time Stop Time Status Last Admin Dose Admin Acetaminophen (TYLenol 325MG TAB) 650 mg Q4H PRN PO TEMPERATURE GREATER THAN 101.5 09/22/24 13:30 10/22/24 13:29 Ceftriaxone Sodium (ROCEphine 1G INJ) 1 gm ONCE PRN IVPB PRE-MED 09/22/24 18:00 09/24/24 17:59 Chlordiazepoxide HCl (LIBrium 25 MG CAP) 25 mg Q2H PRN PO ALCOHOL WITHDRAWAL PROTOCOL 09/22/24 14:30 09/29/24 14:29 Diazepam (VALium 5 MG/ML 2 ML SYG) 10 mg Q4H PRN IVP ALCOHOL WITHDRAWAL PROTOCOL 09/22/24 14:30 09/29/24 14:29 Home Med (Home Medication) (Vit A/Vit C/ Vit E/Zinc/ Cyber Security Engineer... 2X/WEEK PO 09/22/24 14:00 10/22/24 13:59 Hydralazine HCl (APRESOLine 20MG INJ) 5 mg Q4H PRN IV ADMINISTER FOR SBP > 160 09/22/24 13:30 10/22/24 13:29 Hydrocortisone (corTRIsone 1% CREAM) 1 APPL TID PRN TP RASH 09/22/24 22:30 10/22/24 22:29 09/23/24 02:42 1 APPL Lactulose (Constulose 20gm/ 30ml Udcup) 20 gm BID PRN PO CONSTIPATION 09/22/24 13:30 10/22/24 13:29 Magnesium Sulfate 50 ml @ 0 mls/hr PROTOCOL PRN IV low mag level 09/22/24 13:30 10/22/24 13:29 Morphine Sulfate (morPHINE 2MG SYG) 2 mg Q4H PRN IVP SEVERE PAIN (7-10) 09/22/24 14:00 09/29/24 13:59 09/22/24 18:33 2 MG Ondansetron HCl (zoFRAN 4MG INJ) 4 mg Q6H PRN IVP NAUSEA/VOMITING 09/22/24 13:30 10/22/24 13:29 Pharmacy Profile Note (Pharmacy Communication) 1 each PROTOCOL PRN MISC ETOH Withdrawal Score changes 09/22/24 14:30 09/29/24 14:29 Potassium Chloride 100 ml @ 50 mls/hr AD PRN IV POTASSIUM PROTOCOL 09/22/24 13:30 10/22/24 13:29 Potassium Chloride 100 ml @ 100 mls/hr AD PRN IV POTASSIUM PROTOCOL 09/22/24 13:30 09/22/24 13:52 DC Potassium Chloride (K-Dur/Klor-Con 20meq) 20 meq AD PRN PO POTASSIUM PROTOCOL 09/22/24 13:30 10/22/24 13:29 Potassium Chloride (KCl 10% Elixir 20meq/15ml) 20 meq AD PRN PO POTASSIUM PROTOCOL 09/22/24 13:30 10/22/24 13:29 Tamsulosin HCl (FloMAX) 0.4 mg DAILY PO 09/23/24 09:00 10/23/24 08:59 Trazodone HCl (DesyREL/OlepTRO) 25 mg HS PO 09/22/24 21:00 10/22/24 20:59 DIAGNOSTICS / RADIOLOGY: [ ] ASSESSMENT: Gross hematuria POA improved three weight Hennessy CBI Urinary urgency, retention POA three way Hennessy with CBI Rectal bleed secondary to external hemorrhoids POA ETOH DEPENDENCY: HISTORY:RECTAL PROLAPSE HISTORY OF PROSTATE CANCER 2002 PLAN: [ ] Admit: Medical-surgical floor condition: Guarded Status: Full code IVF: Hep-Lock Diet: Heart Healthy diet Consultants urology and GI Procedure cystoscopy this morning. Continues with CBI three way Hennessy. Antibiotics: None Microbiology: UA negative H&H trend H&H every 6 hours stable Type and screen ; transfuse to keep hemoglobin above 7.0 Labs cbc, cmp, mag+ a.m. Replace electrolytes as needed as per protocol to keep potassium above 4.0 magnesium 2.0. Home medications reviewed Pain management: MORPHINE2 MG IV NEEDED FOR PAIN Supportive measures: DVT ppx, GI ppx all questions answered Supervising MD: Dr. VANN c/d This document was generated in part using voice recognition software, occasional wrong word or sound alike substitutions may have occurred due to the inherent limitations of voice recognition software. Read the chart carefully and recognize using context, where the substitutions have occurred. Although every effort was made to edit the content, manager public and typing errors may occur ADVANCED CARE PLANNING 1. Which of the following were discussed? Hospice Care - Yes / No Therapeutic options - Yes / No Advance Directives - Yes / No Other discussions - 2. Discussed with who? 3. Voluntary nature of this service was explained to the patient? Yes / No 4. Amount of time spent - 5. Reviewed by Physician? (if this service was performed by NPP) Yes / No ATTESTATION BY PHYSICIAN I have seen and examined the patient. I reviewed the documentation, medical decision making, and treatment plan as noted by the mid-level provider above. I agree with the findings and plan of care. YUE VANN MD, ELIZABETH NP Sep 23, 2024 06:53
[2024-09-23] MEDS: IOHEXOL 350 MG/ML 100ML INFUS..BTL IV ONE (07:05)
[2024-09-23 07:12] LABS: ASPARTATE AMINOTRANSFERASE 20.0 U/L (10-37); CREATININE 0.8 mg/dL (0.5-1.3); GLOMERULAR FILTR. RATE CALC 91.0 mL/min (>90); GLUCOSE,RANDOM 91.0 mg/dL (70-105); SODIUM SERUM 138.0 mmol/L (136-145); TOTAL PROTEIN, SERUM 6.0 g/dL (6.0-8.3); UREA NITROGEN, BLOOD 18.0 mg/dL (7-18)
[2024-09-23] MEDS ORDERED: NEOSTIGMINE METHYLSULFATE 1MG/ML IV ONE (07:28)
[2024-09-23] MEDS ORDERED: GLYCOPYRROLATE 0.2 MG/ML 5 ML VIAL ONE (07:28)
[2024-09-23 07:30] LABS: IMMATURE GRANULOCYTE ABSOLUTE 0.01 K/uL (0-1); NUCLEATED RED BLOOD CELLS 0.0 % (0.0-0.19); PLATELET COUNT (AUTO) 134 K/uL (130-400); RED BLOOD CELL COUNT(AUTO) 3.24 MIL/uL (4.50-6.20); RED CELL DISTRIBUTION WIDTH 11.8 % (11.0-15.5); WHITE BLOOD COUNT (AUTO) 4.1 K/uL (4.8-10.8)
[2024-09-23 08:32] LABS: APPEARANCE,URINE CLOUDY (CLEAR); GLUCOSE, URINE (UA) NEGATIVE (NEGATIVE); LEUKOCYTE ESTERASE ,URINE 25 Leu/uL (NEGATIVE); NITRATE,URINE NEGATIVE (NEGATIVE); OCCULT BLOOD,URINE LARGE (NEGATIVE)
[2024-09-23 08:42] LABS: ADD UA MICROSCOPIC YES
--- NOTE | 2024-09-23 08:44 | OP ---
DATE OF PROCEDURE: 09/23/2024 PREOPERATIVE DIAGNOSES: Urinary retention, prostate cancer, inability to place Hennessy catheter. POSTOPERATIVE DIAGNOSES: Urinary retention, prostate cancer, inability to place Hennessy catheter. PROCEDURES PERFORMED: * Cystoscopy. * Bladder drainage. * Cystogram. * Placement of 18-[place]izen [place] 3-way Hennessy catheter. ANESTHESIA: General. COMPLICATIONS: None. DRAINS: An 18-[place]izen [place] 3-way Hennessy catheter, 20 mL in balloon. SPECIMENS: Those of urine for urine culture and urinalysis. INDICATIONS FOR PROCEDURE: This is a 78-year-old male with urinary retention, inability to place Hennessy catheter, history of prostate cancer with radiation seed implant, scheduled for cystoscopy. Bladder drainage and indicated procedures to include possible suprapubic cystostomy tube if needed. Risks, benefits, alternatives, and potential complications were discussed with the patient. His concerns and questions were answered. He did request the procedure to be performed and did provide fully informed consent. 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 The external urethra sphincter is intact. Posterior urethra is significant for mild trilobar enlargement of the prostate. Bladder mucosa has severe trabeculation, early diverticula formation. No tumor or stones were identified. Ureter was in normal position with clear efflux bilaterally. DESCRIPTION OF PROCEDURE: The patient was duly identified. Informed consent was confirmed. Timeout was taken. He was then brought to the operating room and placed supine on the table. After adequate hemodynamic monitoring had been established by anesthesiology, the patient underwent smooth induction of general anesthesia by anesthesiology. Next, he was placed in the dorsal lithotomy position and genitalia were now thoroughly prepped and draped in the usual fashion. Timeout was taken. A rigid cystoscopy was then performed with a 30-degree lens, 70-degree lens and a 12-degree lens with the findings above. It was not possible to advance the scope pass the membranous urethra and so with a 12-degree lens in place with some difficulty, it was possible to navigate a sensor wire into the bladder under direct vision and fluoroscopic guidance. Next, a 30-[place] balloon dilation catheter was placed over the wire. 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 The balloon was deflated. The cystoscope was now advanced into the bladder without difficulty. The bladder was drained and emptied completely. An PAK evacuator was used twice to look out for any blood clots. Careful examination of the bladder mucosa showed no lesions. Bladder was now left half full. Instruments were now carefully removed under direct vision and with the safety wire in place, an 18[place] 3-way Hennessy catheter was placed in bladder with efflux of clear urine. Continues bladder irrigation initiated with normal saline. The patient was awakened from anesthesia and was now transferred to operating to recovery room in good stable and hemodynamically satisfactory condition having experienced no complications. The patient received 1 gram of IV Rocephin preoperatively. TID: [id number] RECEIPT: [id number]
[2024-09-23] MEDS ORDERED: IOHEXOL-350 50ML VIAL IV ONE (08:46)
--- NOTE | 2024-09-23 09:00 | NUR ---
PATIENT ARRIVED BACK TO ROOM 327 WITH 18F [address] SHAVER CATHETER PLACED AND CONNECTED TO CBI. URINE WAS PALE YELLOW IN COLOR. NO CLOTS NOTED IN BAG OR TUBING.
[2024-09-23] MEDS: LACTATED RINGERS 1000ML 1,000 ML IV SCH (09:07)
--- NOTE | 2024-09-23 09:10 | CONS ---
REQUESTING PHYSICIAN: Chris Gaffney MD REASON FOR CONSULTATION: urinary retention. HISTORY OF PRESENT ILLNESS: This is a 78-year-old male with voiding difficulties characterized by urinary urgency. The patient did have an ultrasound done that suggested a postvoid residual of about 400 mL in the bladder. All attempts to place a Hennessy catheter apparently failed and consultation with Urology requested. The patient encountered sitting up in bed comfortably. He has no abdominal discomfort. He has voided in very small amounts but feels completely comfortable otherwise. He has had no gross hematuria and reports having had difficulty urinating for the last several months, progressive in nature. The patient with history of prostate cancer about 20 years ago, diagnosed in [place], [place], treated with radiation seed implants. ALLERGIES: None. MEDICATIONS: The patient is on Flomax and trazodone. PAST MEDICAL HISTORY: Hypertension, hyperlipidemia. PAST SURGICAL HISTORY: Coronary artery bypass grafting as well as prostate surgery. FAMILY HISTORY: . SOCIAL HISTORY: The patient lives alone with a pigeon. Has no children. Does not smoke or drink. REVIEW OF SYSTEMS: He has no shortness of breath. No chest pain. His appetite is good. No nausea, vomiting, constipation or diarrhea. No headaches or dizziness. No nosebleeds. No joint pain, joint swelling, limitation of movement, night sweat, fever, chills or skin rash. PHYSICAL EXAMINATION: GENERAL: Well-developed male, currently in no distress whatsoever. VITAL SIGNS: His temperature is 98, blood pressure is 137/67 with a pulse of 97. NECK: No adenopathy or supraclavicular masses palpable. LUNGS: Lung connors are clear to auscultation. HEART: Sounds are best heard in the fifth intercostal space. ABDOMEN: Full, soft and nontender. There is minimal to no jaundice to percussion in the suprapubic area. BACK: No CVA tenderness. EXTERNAL GENITALIA: Phallus free of any lesions. Testicles are descended bilaterally, nontender. No masses. RECTAL EXAMINATION: Patent anus. IMAGING STUDIES: Reviewed today include a CT scan abdomen and pelvis that shows a bladder partially distended. No hydronephrosis. No retroperitoneal adenopathy and radiation seeds in prostate. LABORATORY DATA: White count is 4, hematocrit 35, platelet count is 250. Creatinine is 0.9, sodium 141, potassium 4.3. ASSESSMENT: * Prostate cancer. * Urinary retention. * Inability to place Hennessy catheter. RECOMMENDATIONS: * Proceed with cystoscopy with Hennessy catheter placement. * Possible placement. * Risks, benefits, and alternatives and potential complications were carefully reviewed with the patient. His concerns were answered. He did provide fully informed consent and will be scheduled to have this done as soon as possible. Finally, as an outpatient. The patient will ultimately require to have a PSA done once he is catheter-free, although this will be ordered now at this time. Thank you for the opportunity for providing consultation on your patient. Sincerely, TID: [id number] RECEIPT: [id number]
--- NOTE | 2024-09-23 09:14 | CONS ---
ADDENDUM The patient is to have a PSA after Hennessy catheter has been removed. At this time, he has had significant manipulation of the prostate with attempts at placing Hennessy catheter. Such a PSA done now will likely be abnormally elevated and not reliable. TID: [id number] RECEIPT: [id number]
[2024-09-23] MEDS: CALCIUM CARB 500MG CHEW TAB PO ONE (17:57)
[2024-09-23] MEDS ORDERED: CALCIUM CARB 500MG CHEW TAB PO ONE (18:00)
--- NOTE | 2024-09-23 20:47 | NUR ---
OUTPUT TIMEINOUTTRUE OUTPUT [id number]
[2024-09-24 04:00] VITALS: BP 113/60; PULSE 67; RESP 20; TEMP 98.2
--- NOTE | 2024-09-24 06:49 | NUR ---
OUTPUT 09/23/24-09/24/24 7P-7A TIMEINOUTTRUE OUTPUT [id number]
--- NOTE | 2024-09-24 07:30 | NUR ---
NURSE NOTE CLEAR URINE SEEN IN SHAVER CATHETER BAG, CBI CLAMPED PER ORDER.
[2024-09-24 07:56] VITALS: BP 100/62; PULSE 65; RESP 19; TEMP 98
[2024-09-24] MEDS ORDERED: TAMS-55 PO (11:15)
[2024-09-24] MEDS ORDERED: CEFD300C3 PO (11:15)
--- NOTE | 2024-09-24 11:25 | DS ---
Discharge Summary Hospital Course Summary: ADMISSION DATE 09/22/[address] [facility] [address]. ORNELAS This is a 78-year-old male that presents in ER with chief complaints of urinary urgency: onset: Reports this has been ongoing. Patient has underlying prostate cancer history 2002. Patient reports having hematuria which is ongoing per se. Patient denies flank pain, suprapubic pain,dizziness, or shortness for breath. ER workup bladder scan urine retention greater than 400 mL, multiple attempts insertion of Hennessy catheter unsuccessful. ER physician called Dr. Brittany BOND. 09/23/24 the patient was seen by Dr Souza scheduled today for a Cystogram patient was started on CBI irrigation yesterday with three weight Hennessy. H&H stable GI consulted Patient declined all examination and declined any EGD/colonoscopy exams. 09/24/2024. Patient had a successful Cystoscopy cystogram placement of18 [address] Hennessy CBI was discontinued patient with clear output no hematuria resolved. Patient was followed by Urology we will like to see him in 1-2 weeks patient will be discharged with Hennessy catheter. Patient was also seen by GI patient refused EGD colonoscopy on this admission would like to follow-up as outpatient to schedule colonoscopy patient is a [facility] we will need a referral for GI. Patient denies abdominal pain no active bleeding no rectal bleeding reports. He is hemodynamically stable for discharge. Procedure(s): REASON: GROSS HEMATURIA, URINARY URGENCY, RETENTION ORDERING PHYSICIAN: JELANI SOUZA MD PROCEDURE: ABD PEL WO - CT ABDOMEN/PELVIS W/O CONTRAST EXAM: CT Abdomen and Pelvis without IV contrast CLINICAL HISTORY: GROSS HEMATURIA, URINARY URGENCY, RETENTION TECHNIQUE: Axial computed tomography images of the abdomen and pelvis without intravenous contrast. CT scan performed according to ALARA. Automated exposure control used during exam. CONTRAST: without intravenous contrast. COMPARISON: None provided. FINDINGS: There is linear atelectasis and/or parenchymal scarring at the lung bases. Atherosclerosis of the coronary arteries and thoracic aorta. Presumed prior mitral valve repair. Limited evaluation of the abdominal organs without intravenous contrast. There is no focal abnormality appreciated within the liver, gallbladder, either adrenal gland, either kidney, spleen, or pancreas. Incidental partially calcified splenic capsule. Colonic diverticulosis without evidence for diverticulitis. Bowel loops are normal in caliber without evidence of obstruction or ileus. There is no obvious bowel wall thickening appreciated. The appendix was not visualized. No CT evidence of appendicitis. Prostatic radiation seeds are noted. There is no intravesical abnormality appreciated. The bladder wall appears normal in thickness. Atherosclerotic vascular calcifications are noted. There is no ascites or lymphadenopathy. There is no acute or suspicious osseous abnormality. IMPRESSION: 1. No acute intraabdominal or pelvic pathology. 2. Status post prostatic brachytherapy. Assessment/Plan: Discharged dx's Gross hematuria POA improved three weight Hennessy CBI resolved Urinary urgency, retention POA three way Hennessy with CBI will be discharged with status post cystoscopy Hennessy Catheter Rectal bleed secondary to external hemorrhoids POA H/H stable will follow up GI outpatient colonoscopy ETOH DEPENDENCY: counseling provided HISTORY:RECTAL PROLAPSE HISTORY OF PROSTATE CANCER 2002 PLAN: [ ] ADMISSION DATE: 09/22/2024 DISCHARGE DATE: A 02/2024 DISPOSITION: Home CONDITION: Stable COUNTRY PRINTER APPRENTICE(S): Urology FOLLOW UP APPOINTMENT(S): PCP [facility] 2-[address] Souza one to two wks. PROCEDURES: Cystoscopy cystogram placement of18 [address] Hennessy IMAGING (S) report attached to summary : MICROBIOLOGY: report attached to summary; ACTIVITY: Ad lolis HOME MEDICATIONS remain the same NEW MEDICATIONS cefdinir 300 p.o. b.i.d. for five days and Flomax 0.4 mg p.o. daily TEACHING: Teaching on Hennessy catheter. Emergency instructions: The patient was instructed to present to the nearest Emergency Department or call 911 should their symptoms return or worsen. Discharge Instructions: Item Value Date Time White Blood Count 4.1 K/uL L 09/23/24406 Red Blood Count 3.24 MIL/uL L 09/23/24406 Hemoglobin 11.3 g/dL L 09/23/24406 Platelet Count 134 K/uL 09/23/24 040 Red Cell Distribution Width 11.8 % 09/23/24406 Mean Corpuscular Hemoglobin Concent 34.0 g/dL 09/23/24406 Mean Corpuscular Hemoglobin 34.9 pg H 09/23/24 040 Mean Corpuscular Volume 102.5 fL H 09/23/24 040 Hematocrit 33.2 % L 09/23/24406 Mean Platelet Volume 10.6 fL H 09/23/24 040 Immature Granulocyte % (Auto) 0.2 % 09/23/24406 Neutrophils (%) (Auto) 61.5 % 09/23/24 0407 Lymphocytes (%) (Auto) 20.9 % L 09/23/24 0407 Monocytes (%) (Auto) 13.0 % 09/23/24 0407 Eosinophils (%) (Auto) 3.2 % 09/23/24 0407 Neutrophils # (Auto) 2.5 K/uL 09/23/24 0407 Basophils (%) (Auto) 1.2 % 09/23/24 0407 Lymphocytes # (Auto) 0.9 K/uL L 09/23/24 0407 Monocytes # (Auto) 0.5 K/uL 09/23/24 0407 Eosinophils # (Auto) 0.13 K/uL 09/23/24 0407 Basophils # (Auto) 0.05 K/uL 09/23/24 0407 Absolute Immature Granulocyte (auto 0.01 K/uL 09/23/24 0407 Nucleated Red Blood Cells 0.0 % 09/23/24 0407 Hemoglobin 11.5 g/dL L 09/23/24 1001 Hemoglobin 11.2 g/dL L 09/23/24 1625 Hemoglobin 10.4 g/dL L 09/23/24 2213 Hematocrit 28.5 % L 09/23/24 2213 Hematocrit 28.3 % L 09/23/24 1625 Hematocrit 29.4 % L 09/23/24 1001 Urine Color RED H 09/23/24 0720 Urine Appearance CLOUDY H 09/23/24 0720 Urine pH 5.5 09/23/24 0720 Urine Specific [place] 1.013 09/23/24 0720 Urine Protein 20 mg/dL H 09/23/24 0720 Urine Glucose (UA) NEGATIVE mg/dL 09/23/24 0720 Urine Ketones 20 mg/dL H 09/23/24 0720 Urine Occult Blood LARGE H 09/23/24 0720 Urine Nitrate NEGATIVE 09/23/24 0720 Urine Bilirubin NEGATIVE mg/dL 09/23/24 0720 Urine Urobilinogen 0.2 mg/dL 09/23/24 0720 Urine Leukocyte Esterase 25 Florin/uL H 09/23/24 0720 Urine RBC TNTC /HPF H 09/23/24 0720 Urine WBC 0-1 /HPF 09/23/24 0720 Urine Bacteria None /HPF 09/23/24 0720 Prothrombin Time 10.3 SEC 09/22/24 1308 Prothromb Time International Ratio 0.97 09/22/24 1308 Activated Partial Thromboplast Time 26.8 SEC 09/22/24 1308 Home Medications: Reported Medications Trazodone HCl (Trazodone HCl) 50 Mg Tablet, 25 MG PO HS, TAB 08/30/24 Vit A/Vit C/Vit E/Zinc/Copper (Preservision Areds Softgel) 4,296-226 Capsule, 1 CAP PO 2X/WEEK for 30 Days, #60 CAP 0 Refills 08/26/24 New Medications: Cefdinir (Cefdinir) 300 Mg Capsule 1 CAP PO BID for 5 Days, #10 CAP 0 Refills Tamsulosin HCl (Flomax) 0.4 Mg Cap.er.24h 1 CAP PO DAILY for 30 Days, #30 CAP 0 Refills Continued Medications: Trazodone HCl (Trazodone HCl) 50 Mg Tablet 25 MG PO HS, TAB Vit A/Vit C/Vit E/Zinc/Copper (Preservision Areds Softgel) 4,296-226 Capsule 1 CAP PO 2X/WEEK for 30 Days, #60 CAP 0 Refills Time spent arranging discharge: 31-60 minutes ATTESTATION BY PHYSICIAN I have seen and examined the patient. I reviewed the documentation, medical decision making, and treatment plan as noted by the mid-level provider above. I agree with the findings and plan of care. ONELIA TORRES MD, ELIZABETH NP Sep 24, 2024 11:25
--- NOTE | 2024-09-24 11:44 | PN ---
GASTROENTEROLOGY PROGRESS NOTE Date of Visit: Sep 24, 2024 Time of Visit: 11:29 Events / Notes: [ Late entry note for August Patient examine at bedside. He was awake and alert, and oriented x 3. He is s/p cystogram and now has spears catheter. Patient reports feeling better. He denied having any bleeding and has been able to have BMs. He consented to exam. On exam his respiratons are even and unlabored. BBS are clear. Abdomen is soft and not distended. Spears cath is draining clear yellow urine about 500 ml in spears bag. No external hemorrhoids present. Anus with normal tone; no anal fissures or visible fistulas or abscess present. Multiple sebaceous cysts to anoderm noted. Patient denies having any pain. ] Review of Systems: CONSTITUTIONAL: No malaise or change in sensation of wellbeing. ENMT: No rhinorrhea, otorrhea, sinus pain, ear ache. CARDIOVASCULAR: No angina, palpitations, orthopnea or paroxysmal dyspnea. RESPIRATORY: No SOB. GASTROINTESTINAL: No abdominal pain, nausea, vomiting, diarrhea, hematemesis, melena or change in the patient's habitual bowel movements consistency/number. GENITOURINARY: No dysuria, hematuria or change in bladder continence. MUSCULOSKELETAL: No new muscle pain or decrease in muscular strength. No new joint swelling, redness or tenderness. SKIN: No new rash. Physical Exam: GEN: Awake, alert, oriented in person, time and place, and in no acute distress. HEENT: No rhinorrhea. Oral pharyngeal mucosa is moist and within normal limits. CHEST:BBS clear to auscultation. No tenderness to chest on palpation. CARDIAC: regular date ABD: Abdomen soft and not distended. Active BS present. No external hemorrhoids, anal fissures, visible anal fistulas, normal tone anus; multiple cebaceous cysts to anoderm. Spears cath draining clear yellow urine with 500 ml in spears bag. EXT: No cyanosis or clubbing. No edema. SKIN: Intact. No rashes. JOINTS: No evidence of synovitis or acute arthritis. NEURO: Alert and oriented to name, place and person. Normal speech. Strength is normal. Vital Signs (last 8hr) Date Time Temp Pulse Resp B/P (MAP) Pulse Ox O2 Delivery O2 Flow Rate FiO2 09/24/24 07:56 98.1 65 19 100/62 99 Room Air 21 09/24/24 04:00 98.2 67 20 113/60 97 Room Air Laboratory: [ ] Laboratory: Test 09/23/24 22:13 09/23/24 07:20 09/23/24 04:07 09/22/24 14:06 Range/Units Hemoglobin 10.4 L 14.0-18.0 g/dL Hematocrit 28.5 L 42-54 % Urine Color RED H YELLOW Urine Appearance CLOUDY H CLEAR Urine pH 5.5 5.0-8.0 Urine Specific [place] 1.013 1.001-1.031 Urine Protein 20 H NEGATIVE mg/dL Urine Glucose (UA) NEGATIVE NEGATIVE mg/dL Urine Ketones 20 H NEGATIVE mg/dL Urine Occult Blood LARGE H NEGATIVE Urine Nitrate NEGATIVE NEGATIVE Urine Bilirubin NEGATIVE NEGATIVE mg/dL Urine Urobilinogen 0.2 0.2-1.0 mg/dL Urine Leukocyte Esterase 25 H NEGATIVE Florin/uL Urine RBC TNTC H 0-1 /HPF Urine WBC 0-1 0-1 /HPF Urine Bacteria None None Seen /HPF White Blood Count 4.1 L 4.8-10.8 K/uL Red Blood Count 3.24 L 4.50-6.20 MIL/uL Mean Corpuscular Volume 102.5 H 79-99 fL Mean Corpuscular Hemoglobin 34.9 H 27.0-33.0 pg Mean Corpuscular Hemoglobin Concent 34.0 32.0-36.0 g/dL Red Cell Distribution Width 11.8 11.0-15.5 % Platelet Count 134 130-400 K/uL Mean Platelet Volume 10.6 H 7.5-10.5 fL Immature Granulocyte % (Auto) 0.2 0-1 % Neutrophils (%) (Auto) 61.5 40.0-77.0 % Lymphocytes (%) (Auto) 20.9 L 21.0-51.0 % Monocytes (%) (Auto) 13.0 3.0-13.0 % Eosinophils (%) (Auto) 3.2 0.0-8.0 % Basophils (%) (Auto) 1.2 0.0-5.0 % Neutrophils # (Auto) 2.5 1.8-7.7 K/uL Lymphocytes # (Auto) 0.9 L 1.0-4.8 K/uL Monocytes # (Auto) 0.5 0.1-1.0 K/uL Eosinophils # (Auto) 0.13 0.00-0.70 K/uL Basophils # (Auto) 0.05 0.00-0.20 K/uL Absolute Immature Granulocyte (auto 0.01 0-1 K/uL Nucleated Red Blood Cells 0.0 0.0-0.19 % Sodium Level 138 136-145 mmol/L Potassium Level 3.9 3.5-5.1 mmol/L Chloride Level 104 101-111 mmol/L Carbon Dioxide Level 31 21-32 mmol/L Blood Urea Nitrogen 18 7-18 mg/dL Creatinine 0.8 0.5-1.3 mg/dL Glomerular Filtration Rate Calc 91 >90 mL/min Random Glucose 91 70-105 mg/dL Total Calcium 8.4 L 8.5-10.1 mg/dL Magnesium Level 1.90 1.80-2.40 mg/dL Total Bilirubin 1.2 H 0.2-1.0 mg/dL Aspartate Amino Transf (AST/SGOT) 20 10-37 U/L Alanine Aminotransferase (ALT/SGPT) 19 12-78 U/L Alkaline Phosphatase 40 L 50-136 U/L Total Protein 6.0 6.0-8.3 g/dL Albumin 3.0 L 3.5-5.0 g/dL Direct Bilirubin 0.2 0.0-0.3 mg/dL Test 09/22/24 13:10 09/22/24 13:08 Range/Units Urine Squamous Epithelial Cells None Seen 0-2 /HPF Red Blood Cell Morphology See comments Prothrombin Time 10.3 9.6-11.6 SEC Prothromb Time International Ratio 0.97 0.85-1.15 Activated Partial Thromboplast Time 26.8 26.3-35.5 SEC Current Medications Medications (Trade) Dose Ordered Sig/Amber Route PRN Reason Start Time Stop Time Status Last Admin Dose Admin Acetaminophen (TYLenol 325MG TAB) 650 mg Q4H PRN PO TEMPERATURE GREATER THAN 101.5 09/22/24 13:30 10/22/24 13:29 Acetaminophen (TYLenol 500MG TAB) 1,000 mg Q6H PRN PO MODERATE PAIN (4-6) 09/23/24 09:00 10/23/24 08:59 Ceftriaxone Sodium (ROCEphine 1G INJ) 1 gm ONCE PRN IVPB PRE-MED 7/30/25 18:00 09/24/24 17:59 09/23/24 06:55 1 GM Chlordiazepoxide HCl (LIBrium 25 MG CAP) 25 mg Q2H PRN PO ALCOHOL WITHDRAWAL PROTOCOL 09/22/24 14:30 09/29/24 14:29 Diazepam (VALium 5 MG/ML 2 ML SYG) 10 mg Q4H PRN IVP ALCOHOL WITHDRAWAL PROTOCOL 09/22/24 14:30 09/29/24 14:29 Home Med (Home Medication) (Vit A/Vit C/ Vit E/Zinc/ Stranner... 2X/WEEK PO 09/22/24 14:00 10/22/24 13:59 Hydralazine HCl (APRESOLine 20MG INJ) 5 mg Q4H PRN IV ADMINISTER FOR SBP > 160 09/22/24 13:30 10/22/24 13:29 Hydrocortisone (corTRIsone 1% CREAM) 1 APPL TID PRN TP RASH 09/22/24 22:30 10/22/24 22:29 09/23/24 02:42 1 APPL Lactated Ringer's 1,000 ml @ 100 mls/hr Q10H IV 09/23/24 09:00 10/23/24 08:59 09/24/24 04:49 100 MLS/HR Lactulose (Constulose 20gm/ 30ml Udcup) 20 gm BID PRN PO CONSTIPATION 09/22/24 13:30 10/22/24 13:29 Magnesium Sulfate 50 ml @ 0 mls/hr PROTOCOL PRN IV low mag level 09/22/24 13:30 10/22/24 13:29 Morphine Sulfate (morPHINE 2MG SYG) 2 mg Q4H PRN IVP SEVERE PAIN (7-10) 09/22/24 14:00 09/29/24 13:59 09/24/24 01:14 2 MG Ondansetron HCl (zoFRAN 4MG INJ) 4 mg Q6H PRN IVP NAUSEA/VOMITING 09/22/24 13:30 10/22/24 13:29 Pantoprazole Sodium (PROTonix 40MG TAB) 40 mg DAILY PO 09/23/24 17:30 10/23/24 17:29 09/24/24 09:01 40 MG Pharmacy Profile Note (Pharmacy Communication) 1 each PROTOCOL PRN MISC ETOH Withdrawal Score changes 09/22/24 14:30 09/29/24 14:29 Potassium Chloride 100 ml @ 50 mls/hr AD PRN IV POTASSIUM PROTOCOL 09/22/24 13:30 10/22/24 13:29 Potassium Chloride 100 ml @ 100 mls/hr AD PRN IV POTASSIUM PROTOCOL 09/22/24 13:30 09/22/24 13:52 DC Potassium Chloride (K-Dur/Klor-Con 20meq) 20 meq AD PRN PO POTASSIUM PROTOCOL 09/22/24 13:30 10/22/24 13:29 Potassium Chloride (KCl 10% Elixir 20meq/15ml) 20 meq AD PRN PO POTASSIUM PROTOCOL 09/22/24 13:30 10/22/24 13:29 Tamsulosin HCl (FloMAX) 0.4 mg DAILY PO 09/23/24 09:00 10/23/24 08:59 09/24/24 09:01 0.4 MG Trazodone HCl (DesyREL/OlepTRO) 25 mg HS PO 09/22/24 21:00 10/22/24 20:59 09/23/24 20:52 25 MG Assessment: [Concern for Gi bleed Exernal Hemorrhoids Urinary Retention s/p hernia repair ] Plan: [Trend HGB and transfuse as needed to maintain HGB>7 Diet as tolerated. Will hold on any GI intervention at this time given patient's HGB of 11.8 and holding. Will be available if needed. Please call with questions, concern and change in clinical status. Thank you for this consult. ] HANK SIERRA NP Sep 24, 2024 11:44
[2024-09-24 12:00] VITALS: BP 111/54; PULSE 70; RESP 19; TEMP 98.3
[2024-09-24 12:26] LABS: CREATININE 0.6 mg/dL (0.5-1.3); GLOMERULAR FILTR. RATE CALC 99.0 mL/min (>90); GLUCOSE,RANDOM 110.0 mg/dL (70-105); SODIUM SERUM 139.0 mmol/L (136-145); UREA NITROGEN, BLOOD 11.0 mg/dL (7-18)
[2024-09-24 12:30] LABS: ASPARTATE AMINOTRANSFERASE 18.0 U/L (10-37); TOTAL PROTEIN, SERUM 5.4 g/dL (6.0-8.3)
--- NOTE | 2024-09-24 16:00 | NUR ---
DC NOTE DC INSTRUCTIONS AND FOLLOW UP APPOINTMENT GIVEN TO PT AND MAKE SURE TO RECEIVE AN REFERRAL FROM PRIMARY TO SEE DR. SOUZA FOR SHAVER CATHETER CONTINUOUS CARE, VERBALIZED UNDERSTANDING. PIV REMOVED, CATHETER INTACT DENIES ANY PAIN OR DISCOMFORT. RETURN DEMONSTRATION FROM EMPTYING URINE FROM LEG BAG PROVIDED AND PLACED. PT REFUSED TO TAKE BIG SHAVER BAG. PT IS WHEELED DOWNSTAIRS WITH [employer] INTO VIA PRIVATE CAR. NO FURTHER COMMENTS OR CONCERNS AT THIS TIME.
== END 2024-09-24 16:00 | disposition home or self-care (01) | DRG 697 ==
LOC: EDH 11:12 → EDHIP 13:04 → 3DH 17:50
PROVIDERS: ADMIT Internal Medicine; ATTEND Internal Medicine
PROC: BT1B1ZZ Fluoroscopy of Bladder and Urethra using Low Osmolar Contrast (ICD-10-PCS; 2024-09-23)
PROC: 0T9B80Z Drainage of Bladder with Drainage Device, Via Natural or Artificial Opening Endoscopic (ICD-10-PCS; 2024-09-23)
PROC: 0T7D8ZZ Dilation of Urethra, Via Natural or Artificial Opening Endoscopic (ICD-10-PCS; principal; 2024-09-23 06:48)
DX: N35.813 Other membranous urethral stricture, male (principal); N36.5 Urethral false passage; I10 Essential (primary) hypertension; K64.4 Residual hemorrhoidal skin tags; N40.1 Benign prostatic hyperplasia with lower urinary tract symptoms; R31.0 Gross hematuria; E78.5 Hyperlipidemia, unspecified; K64.8 Other hemorrhoids; Z85.46 Personal history of malignant neoplasm of prostate; Z92.3 Personal history of irradiation; Z95.1 Presence of aortocoronary bypass graft
CPT/HCPCS: 36415; 74176; 80048; 80053; 80076; 81001; 83735; 84153; 85014; 85018; 85025; 85610; 85730; 86850; 86900; 86901; 96374; 96375; 99285; A4344; A4354; C1758; C1769; G0378; J0696; J2250; J2270; J2405; J2704; J2710; J3010; J3490; J7120; Q9967; A4216; A4222; A4223; A4358; A4600; A4649; A4930

== ENCOUNTER 2024-10-06 13:35 | Emergency (ER) | payer OTHER, MEDICARE ==
[~2024-10-06] VITALS: Ht 182.9 cm; Wt 79.4 kg
[~2024-10-06 13:35] MED LIST changes: +CEFD300C3 PO; +TAMS-55 PO
--- NOTE | 2024-10-06 13:53 | NUR ---
PER MD, BLADDER SCAN PERFORMED. 147 ML URINE NOTED IN BLADDER. MD MADE AWARE. ORDERES RECEIVED.
--- NOTE | 2024-10-06 14:48 | NUR ---
PER MD, SHAVER CATHETER WAS FLUSHED WITH 75 ML STERILE WATER. SHAVER CATHETER IS NOW DRAINING PROPERLY. 250 ML DRAINED, PATIENT VOICED RELIEF FROM BLADDER PRESSURE AND PAIN. REPEAT BLADDER SCAN SHOWED 47 ML URINE. MD MADE AWARE.
--- NOTE | 2024-10-06 14:53 | ERN ---
ED Note History of Present Illness Stated Complaint: SHAVER CATH PROBLEM Chief Complaint: Urinary Catheter Problems Time Seen by MD: 13:45 Time Seen by Midlevel: 13:45 Dictation: 78-year-old male who presents to the ED for evaluation of Shaver catheter rod reid. Reports it does not draining anymore. Denies fever, chills, flank pain Allergies: Coded Allergies: No Known Allergies (Unverified Allergy, Unknown, 09/01/18) Home Meds Active Scripts Cefdinir (Cefdinir) 300 Mg Capsule, 1 CAP PO BID for 5 Days, #10 CAP 0 Refills Prov:NINA MAZA NP 09/24/24 Tamsulosin HCl (Flomax) 0.4 Mg Cap.er.24h, 1 CAP PO DAILY for 30 Days, #30 CAP 0 Refills Prov:NINA MAZA [employer]YEAR WELTER 09/24/24 Reported Medications Trazodone HCl (Trazodone HCl) 50 Mg Tablet, 25 MG PO HS, TAB 08/30/24 Vit A/Vit C/Vit E/Zinc/Copper (Preservision Areds Softgel) 4,296-226 Capsule, 1 CAP PO 2X/WEEK for 30 Days, #60 CAP 0 Refills 08/26/24 Past Medical History Past Medical History: No Pertinent History Surgical History: Other Surgical History Other: PROSTATES REMOVED RN Note Reviewed/Agreed w/PFSH: Yes Review of System Dictation Constitutional: Negative for fever,chills, and weight loss Eyes: Negative for injury, pain,redness, and discharge ENT: Negative for injury,pain or swelling Cardiovascular: Negative for chest pain, palpitations, and edema Respiratory: Negative for shortness of breath, cough, and wheezing, Abdomen/GI: Negative for abdominal pain, nausea, vomiting, diarrhea, and constipation Back: Negative for injury and pain : Negative for injury, bleeding and discharge MS/Extremity: Negative for injury and deformity Skin: Negative for rash, and discoloration Neuro: Negative for headache, weakness, numbness, tingling, and seizure Psych: Negative for suicide ideation, homicidal ideation, and hallucinations Review of Systems: was completed Initial Vital Sign VS Vital Signs Date Time Temp Pulse Resp B/P (MAP) Pulse Ox O2 Delivery O2 Flow Rate FiO2 10/06/24 13:36 98.6 89 18 121/75 97 Room Air Physical Exam Dictation General: awake, alert, NAD Head/Face: Normocephalic, atraumatic Eyes: PERRL, EOMI, vision at baseline ENT: oral cavity clear, TMs clear, no signs of infection Neck: Trachea midline, supple, no nuchal rigidity Cardiovascular: RRR, normal S1/S2, No MRGs, no JVD Respiratory: CTAB, no respiratory distress, No rales or wheezes Abdomen: Soft, non-tender, non-distended, normal bowel sounds, no guarding or rebound. Skin: Warm, dry, normal turgor, no rash MS/Extremity: Pulses equal, no cyanosis, neurovascular intact, FROM Neuro: COAx4, GCS 15, strength 5/5, CN 2-12 intact, normal cerebellar exam, normal gait, Psych: Normal behavior, mood, and affect normal ED Course ED Course Orders Procedure Category Date Status Time Nurse Driven Shaver YFN 10/06/24 In Process Removal Pro 13:59 Vital Signs Date Time Temp Pulse Resp B/P (MAP) Pulse Ox O2 Delivery O2 Flow Rate FiO2 10/06/24 13:36 98.6 89 18 121/75 97 Room Air Medical Decision Making MDM MDM: Differential diagnosis: Shaver catheter problem, urinary retention Rationale: Tests considered and ordered secondary to shared decision making include: Previous outside records reviewed: Old ER visits. Medications-Per medication reconciliation Need for hospitalization: Patient does not meet criteria for hospitalization. Need for emergency major/minor surgery: No Patient's prior external medical records from other ER visits were reviewed by me as indicated. Prior testing and results from previous visits were reviewed. Prior tests were taken into account with medical decision making and resource utilization, independent historian/historians were used to obtain complete medical history. I independently interpreted the test that were performed, results were reviewed by me and considered findings on radiology if ordered. Medical management and examination interpretation discussions were had by me with other qualified healthcare professionals as indicated for the patient's care. Patient coming in for Shaver catheter change. Reports he has a history of urinary obstruction your Shaver catheter was not draining since this morning. Denies abdominal pain, dysuria, hematuria, flank pain. Reports he has a catheter placed on September 23. Catheter was flushed here in ER by RN is now draining and working appropriately. Patient will be discharged home in stable and improved condition without need for changing the Shaver. Return precautions discussed with patient. Patient verbalized understanding, agreed with plan, and all questions were answered at this time. DX & DISP Disposition: Discharge Departure Impression: Primary Impression: Indwelling Shaver catheter present Condition: Stable Additional Instructions: DISCHARGE HOME. REST. FOLLOW UP WITH PRIMARY CARE DRJayden IN 24 HOURS. RETURN TO THE ER FOR ANY ACUTE CHANGE. PATIENT WAS ALSO ADVISED TO FOLLOW-UP WITH PRIMARY CARE PHYSICIAN IN 1 TO 2 DAYS FOR CONTINUED MONITORING. ALL INSTRUCTIONS WERE GIVEN TO LAYMANS TERM AND PATIENT AGREEABLE TO DISCHARGE AND PROPER FOLLOW-UP. Referrals: ELOISA ORNELAS MD (PCP) I have reviewed the case, and I agree with, Diagnosis and Plan LEXX BUNN Oct 06, 2024 14:53
[2024-10-06 14:55] VITALS: BP 124/69; PULSE 73; RESP 15; TEMP 98.3; O2SAT 100
== END 2024-10-06 15:00 | disposition home or self-care (01) ==
LOC: EDH 13:35
DX: T83.098A Other mechanical complication of other urinary catheter, initial encounter (principal); Y82.8 Other medical devices associated with adverse incidents; Y92.89 Other specified places as the place of occurrence of the external cause
CPT/HCPCS: 99284

== ENCOUNTER → 2024-11-22 | Outpatient (CLI) | payer OTHER ==
--- NOTE | 2024-11-23 08:18 | HMCIMG ---
COMPARISON: None Available FLUOROSCOPY TIME: 0.7 minute TECHNIQUE: A single contrast Gastrografin enema was performed. The entire colon was coated with Gastrografin. The slicing machine operator film demonstrate multiple brachytherapy sticks in the prostate bed. The gas pattern is nonspecific. FINDINGS: All colonic segments are well visualized. There are no strictures, masses, or polyps identified. There is scattered diverticulosis mostly in the sigmoid colon. The terminal ileum was seen.. The appendix is not identified. IMPRESSION: 1. Scattered diverticulosis in sigmoid colon with no evidence of diverticulitis. Otherwise a normal single contrast Gastrografin enema.
== END | disposition home or self-care (01) ==
LOC: RAH 09:03
PROVIDERS: ATTEND Surgery
DX: K57.30 Diverticulosis of large intestine without perforation or abscess without bleeding (principal)
CPT/HCPCS: 74270; Q9958